=== PATIENT | male | born 1955 | race Caucasian/White ===

== ENCOUNTER 2017-06-27 23:40 | Emergency (ER) | payer SELFPAY ==
[~2017-06-27] VITALS: Ht 177.8 cm; Wt 86.2 kg
[2017-06-27 23:48] VITALS: BP_SYST 143
[2017-06-28] MEDS ORDERED: DIPH-TET-PERTUS Vaccine 0.5 ML VIAL (ADACEL) I.M. ONE (00:30)
[2017-06-28] MEDS ORDERED: LIDOCAINE MPF 1% 50 MG/5 ML AMP INJ ONE (00:45)
[2017-06-28] MEDS ORDERED: BACITRACIN 1 GM OINT TP ONE (00:45)
[2017-06-28 01:58] VITALS: BP_SYST 140
== END 2017-06-28 01:58 | disposition home or self-care (01) ==
LOC: SED 23:40
DX: S61.217A Laceration without foreign body of left little finger without damage to nail, initial encounter (principal); X58.XXXA Exposure to other specified factors, initial encounter; Y93.68 Activity, volleyball (beach) (court); Y92.39 Other specified sports and athletic area as the place of occurrence of the external cause; Y99.8 Other external cause status
CPT/HCPCS: 73140-TC; 90715; 99284